=== PATIENT | female | born 1985 | race Caucasian/White ===

== ENCOUNTER 2019-12-27 00:41 | Emergency (ER) | payer OTHER ==
--- NOTE | 2019-12-27 02:11 | ER Document Report ---
ED GI/ - General Chief Complaint: Pelvic Problem Stated Complaint: FOREIGN OBJECT IN VAGINA Time Seen by Provider: 12/27/19 01:56 Notes: Patient is a 34-year-old female that comes emergency department for chief complaint of lower abdominal cramping, foul-smelling vaginal discharge, and concerned for a possible retained makeshift tampon that she made out of folding up a pad. Patient is an inmate and comes with law enforcement escort. Patient denies fever, vomiting, or any other symptoms. She states she pushed in a regular pain tampon before she remembered she had the old one in, she was able to get the regular without but was unable to find the makeshift one. Patient has had a tubal ligation, denies any medical history otherwise, denies any diagnosed medical history. - Related Data Allergies/Adverse Reactions: codeine Allergy (Verified 12/27/19 01:05) Penicillins Allergy (Verified 12/27/19 01:05) Home Medications: Celexa Past Medical History - General Information source: Patient, Law Enforcement - Social History Smoking Status: Never Smoker Frequency of alcohol use: None Drug Abuse: None Lives with: Other - Incarcerated Family History: Reviewed & Not Pertinent Patient has homicidal ideation: No - Medical History Medical History: Negative Past Surgical History: Reports: Hx Tubal Ligation - Immunizations Hx Diphtheria, Pertussis, Tetanus Vaccination: Yes Review of Systems - Review of Systems Constitutional: No symptoms reported EENT: No symptoms reported Cardiovascular: No symptoms reported Respiratory: No symptoms reported Gastrointestinal: See HPI Genitourinary: See HPI Female Genitourinary: See HPI Musculoskeletal: No symptoms reported Skin: No symptoms reported Hematologic/Lymphatic: No symptoms reported Neurological/Psychological: No symptoms reported Physical Exam - Vital signs Vitals: Temp Pulse Resp BP Pulse Ox 98.5 F 119 H 20 133/82 H 119 H 12/27/19 01:05 12/27/19 01:05 12/27/19 01:05 12/27/19 01:05 12/27/19 01:05 - Notes Notes: GENERAL: Alert, interacts well. No acute distress. HEAD: Normocephalic, atraumatic. EYES: Pupils equal, round, and reactive to light. Extraocular movements intact. ENT: Oral mucosa moist, tongue midline. Oropharynx unremarkable. Airway patent. NECK: Full range of motion. Supple. Trachea midline. No lymphadenopathy. LUNGS: Clear to auscultation bilaterally, no wheezes, rales, or rhonchi. No respiratory distress. Non-tender chest wall. HEART: Regular rate and rhythm. No murmur ABDOMEN: There is tenderness over the general lower abdomen/pelvic area bilaterally and over the suprapubic area. Remaining abdomen is soft and benign. No guarding or rigidity. GENITOURINARY: Cervical motion tenderness noted with large amount of purulent discharge vaginally. No bleeding. No foreign body or lesions noted, no other concerning findings on exam, no rash externally. Exam performed with Nery PCT at bedside. EXTREMITIES: Moves all 4 extremities spontaneously. No edema, normal radial and dorsalis pedis pulses bilaterally. No cyanosis. BACK: no cervical, thoracic, lumbar midline tenderness. No saddle anesthesia, normal distal neurovascular exam. Moves all extremities in full range of motion. NEUROLOGICAL: Alert and oriented x3. Normal speech. Cranial nerves II through XII grossly intact. Strength 5/5 in all extremities. PSYCH: Normal affect, normal mood. SKIN: Warm, dry, normal turgor. No rashes or lesions noted. Course - Re-evaluation Re-evalutation: On exam patient does not have any noted foreign body, she appears to have remove d this on her own. Patient does have tenderness at the cervix, erythema of the cervix, purulent discharge from the cervix consistent with pelvic infection. Wet mount shows 4+ white blood cells and 3+ bacteria, trichomonas is positive, gonorrhea and Chlamydia are still pending. Vital signs rechecked and unremarkable without treatment. Patient without fever, vomiting. Discussed all details with patient, patient be treated with antibiotics including Rocephin here, doxycycline and Flagyl to go, discussed follow-up and return precautions. Patient states understanding and agreement, stable and well-appearing at time of discharge. - Vital Signs Vital signs: Temp Pulse Resp BP Pulse Ox 98.7 F 89 16 139/88 H 100 12/27/19 06:08 12/27/19 06:08 12/27/19 06:08 12/27/19 06:08 12/27/19 06:08 - Laboratory Laboratory results interpreted by me: 12/27/19 04:03 Urine Protein 100 H Urine Ketones 20 H Urine Blood SMALL H Urine Urobilinogen 2.0 H Ur Leukocyte Esterase LARGE H Discharge - Discharge Clinical Impression: Pelvic pain, Vaginal discharge Condition: Stable Disposition: HOME, SELF-CARE Additional Instructions: Your evaluation shows a pelvic infection. You have an STD. Take the antibiotics as prescribed to completion. Avoid sexual intercourse for 7 to 10 days. Any partner needs to be treated as well. Follow-up with primary care. Return for any concerning symptoms including severe worsening pain, vomiting, developing a fever, or any other concerning or worsening symptoms. Prescriptions: Metronidazole [Flagyl 500 mg Tablet] 500 mg PO BID 7 Days #14 tablet Doxycycline Hyclate [Vibramycin 100 mg Tablet] 100 mg PO BID 10 Days #20 tablet
[2019-12-27] MEDS ORDERED: OXYCODONE HCL IR 5 MG TABLET PO ONE (04:03)
[2019-12-27] MEDS ORDERED: PROMETHAZINE HCL 25 MG TABLET PO ONE (04:03)
[2019-12-27 05:26] LABS: BACTERIA (WET MOUNT) 4+ BACTERIA SEEN; T.VAGINALIS (WET MOUNT) TRICHOMONAS SEEN; WBCS (WET MOUNT) 3+ WBCS SEEN; YEAST (WET MOUNT) NO YEAST SEEN
[2019-12-27 05:31] LABS: APPEARANCE,URINE CLOUDY; BILIRUBIN,URINE NEGATIVE (NEGATIVE); CALCIUM OXALATE CRYSTALS,URINE MODERATE /HPF; GLUCOSE, URINE NEGATIVE (NEGATIVE); KETONES,URINE 20 mg/dL (NEGATIVE); LEUKOCYTE ESTERASE,URINE LARGE (NEGATIVE); NITRITE,URINE NEGATIVE (NEGATIVE); PROTEIN,URINE 100 mg/dL (NEGATIVE); URINE SPECIFIC GRAVITY 1.028
[2019-12-27 05:33] LABS: COLOR,URINE DARK YELLOW
[2019-12-27] MEDS ORDERED: CEFTRIAXONE INJ 250 MG VIAL IM ONE (05:37)
[2019-12-27] MEDS ORDERED: LIDOCAINE 1% INJ-PF (10 MG/ML) 30 ML SDV INJ ONE (05:37)
[2019-12-27] MEDS ORDERED: DOXYCYCLINE HYCLATE 100 MG TABLET PO ONE (05:38)
[2019-12-27 06:09] VITALS: BP 139/88
[2019-12-27 07:04] LABS: CHLAM PCR NOT DETECTED (NOT DETECT)
== END 2019-12-27 06:10 | disposition home or self-care (01) ==
LOC: ER 00:41
DX: T19.2XXA Foreign body in vulva and vagina, initial encounter (principal); R10.30 Lower abdominal pain, unspecified; N89.8 Other specified noninflammatory disorders of vagina; X58.XXXA Exposure to other specified factors, initial encounter; Z88.0 Allergy status to penicillin; Z88.8 Allergy status to other drugs, medicaments and biological substances
CPT/HCPCS: 99284; 96372; 87086; 87210; 81025; 81001; 87491; 87591; J3490; J0696